=== PATIENT | female | born 1975 ===

== ENCOUNTER 2016-12-20 18:44 | Emergency (ER) | payer MEDICAID ==
[2016-12-20 19:10] VITALS: BP 116/76; PULSE 75; RESP 16; TEMP 98.2; O2SAT 100
--- NOTE | 2016-12-20 19:41 | ED PDOC ---
HPI: Abdomen Time Seen by Provider: 12/20/16 19:40 Chief Complaint (Nursing): Abdominal Pain Chief Complaint (Provider): abdominal pain History Per: Patient Additional Complaint(s): 41-year-old female with history of chronic back pain and chronic abdominal pain secondary to endometriosis presents to emergency department with worsening abdominal pain that started yesterday. Patient is currently getting her period and she states that whenever she is pre-menstrual her abdominal pain becomes worse. Patient is under the care of car painter for chronic back pain and takes oxycodone 30 mg tablets twice a day. She took her usual dose earlier but this did not help the abdominal pain. No other medications taken for pain relief. Patient denies any vaginal discharge or bleeding, denies dysuria or hematuria, no fever or chills. She rates current pain as a 9 out of 10. Past Medical History Reviewed: Historical Data, Nursing Documentation, Vital Signs Vital Signs: Last Vital Signs Temp 98.2 F 12/20/16 19:07 Pulse 75 12/20/16 19:07 Resp 16 12/20/16 19:07 BP 116/76 12/20/16 19:07 Pulse Ox 100 12/20/16 19:41 - Medical History PMH: Anxiety, Asthma, HTN, Hyperlipidemia - Surgical History Other surgeries: abdominoplasty, breast augmentation - Family History Family History: States: No Known Family Hx - Living Arrangements Living Arrangements: With Family - Social History Current smoker - smoking cessation education provided: No Alcohol: None Drugs: Denies - Home Medications Home Medications: Ambulatory Orders Medication Instructions Recorded Ibuprofen [Motrin Tab] 800 mg PO Q6H PRN #20 tab 10/08/16 - Allergies Allergies/Adverse Reactions: Allergies Allergy/AdvReac Type Severity Reaction Status Date / Time No Known Allergies Allergy Verified 12/20/16 19:07 Review of Systems ROS Statement: Except As Marked, All Systems Reviewed And Found Negative Constitutional: Negative for: Fever Cardiovascular: Negative for: Chest Pain Respiratory: Negative for: Cough Gastrointestinal: Positive for: Abdominal Pain. Negative for: Nausea, Vomiting , Diarrhea Genitourinary Female: Negative for: Dysuria, Vaginal Discharge, Vaginal Bleeding Physical Exam - Reviewed Nursing Documentation Reviewed: Yes Vital Signs Reviewed: Yes - Physical Exam Appears: Positive for: Well, Non-toxic, No Acute Distress Skin: Negative for: Rash Eye Exam: Positive for: Normal appearance, EOMI, PERRL Cardiovascular/Chest: Positive for: Regular Rate, Rhythm Respiratory: Positive for: Normal Breath Sounds Gastrointestinal/Abdominal: Positive for: Normal Exam, Soft. Negative for: Tenderness, Distended, Guarding, Rebound Back: Negative for: L CVA Tenderness, R CVA Tenderness Extremity: Positive for: Normal ROM Neurologic/Psych: Positive for: Alert, Oriented - ECG O2 Sat by Pulse Oximetry: 100 Pulse Ox Interpretation: Normal Medical Decision Making Medical Decision Making: Impression: chronic abdominal pain, endometriosis Plan: CBC CMP test UA IVF IV toradol Disposition - Clinical Impression Clinical Impression: Abdominal pain, Endometriosis - Patient ED Disposition Is Patient to be Admitted: Transfer of Care - Disposition Disposition: Transfer of Care Disposition Time: 20:00 Condition: STABLE Patient Signed Over To: Jessica Sharma Handoff Comments: Signed out pending diagnostic testing results and final disposition
[2016-12-20] MEDS ORDERED: Sodium Chloride 0.9% 1,000 ML IV STA (19:47)
[2016-12-20 20:29] LABS: BASO # 0.1 K/uL (0.0-0.2); BASO % 0.6 % (0.0-2.0); EOS # 0.2 K/uL (0.0-0.7); EOS % 1.9 % (0.0-4.0); HEMATOCRIT 39.4 % (34.0-47.0); LYMPH # 3.7 K/uL (1.0-4.3); LYMPH % 38.1 % (20.0-40.0); MEAN CELL VOLUME 88.1 fl (81.0-99.0); MEAN CORPUSCULAR HEMOGLOBIN 28.6 pg (27.0-31.0); MEAN CORPUSCULAR HGB CONC 32.5 g/dL (33.0-37.0); MEAN PLATELET VOLUME 11.2 fl (7.2-11.7); MONO # 0.7 K/uL (0.0-0.8); MONO % 7.8 % (0.0-10.0); NEUT # 4.9 K/uL (1.8-7.0); NEUT % 51.6 % (50.0-75.0); NRBC % 0.1 % (0.0-0.0); RED CELL DISTRIBUTION WIDTH 13.8 % (11.5-14.5); WHITE BLOOD COUNT 9.6 K/uL (4.8-10.8)
[2016-12-20 20:36] LABS: ALB/GLOB RATIO 1.5 (1.0-2.1); ALKALINE PHOSPHATASE 71 U/L (38-126); ALT/SGPT 30 U/L (9-52); AST/SGOT 22 U/L (14-36); BILIRUBIN,TOTAL 0.3 mg/dl (0.2-1.3); BLOOD UREA NITROGEN 14 mg/dl (7-17); CALCIUM 9.4 mg/dL (8.4-10.2); CARBON DIOXIDE 26 mmol/L (22-30); CHLORIDE 101 mmol/L (98-107); GFR AFRICAN-AMERICAN > 60; GLUCOSE,RANDOM 98 mg/dL (65-105); POTASSIUM 4.2 MMOL/L (3.6-5.0); RBC URINE 3 /hpf (0-3); SODIUM 138 mmol/l (132-148); TOTAL PROTEIN 7.2 G/DL (6.3-8.2); URINE BACTERIA FEW (<OCC); URINE BILIRUBIN NEGATIVE (NEGATIVE); URINE BLOOD NEGATIVE (NEGATIVE); URINE COLOR YELLOW (YELLOW); URINE GLUCOSE (UA) NEG (Normal); URINE KETONE NEGATIVE (NEGATIVE); URINE LEUKOCYTE ESTERASE SMALL Leu/uL (Negative); URINE PROTEIN NEGATIVE (NEGATIVE); URINE UROBILINOGEN 0.2-1.0 mg/dL (0.2-1.0); WBC URINE 6 /hpf (0-5)
--- NOTE | 2016-12-20 21:09 | ED PDOC ---
- Laboratory Results Result Diagrams: 12/20/16 20:02 12/20/16 20:02 - ECG O2 Sat by Pulse Oximetry: 100 Medical Decision Making Medical Decision Making: Labs and urine reviewed. Disposition - Clinical Impression Clinical Impression: Abdominal pain, Endometriosis - POA Present On Arrival: None - Disposition [facility]errals: [facility]Outside] [facility] [Outside[facility] Disposition: Routine/Home Disposition Time: 21:07 Condition: GOOD Prescriptions: Naproxen 500 mg PO Q12H #20 tab Instructions: Endometritis (ED)
== END 2016-12-20 21:18 | disposition home or self-care (01) ==
LOC: H.ER 18:44
DX: N80.9 Endometriosis, unspecified (principal); G89.29 Other chronic pain; E78.5 Hyperlipidemia, unspecified; F41.9 Anxiety disorder, unspecified; I10 Essential (primary) hypertension; J45.909 Unspecified asthma, uncomplicated

== ENCOUNTER 2017-02-14 19:16 | Emergency (ER) | payer MEDICAID ==
[2017-02-14 19:51] VITALS: BP 136/94; PULSE 77; RESP 16; TEMP 98.2; O2SAT 95
--- NOTE | 2017-02-14 20:34 | ED PDOC ---
HPI: Abdomen Time Seen by Provider: 02/14/17 19:35 Chief Complaint (Nursing): Abdominal Pain Chief Complaint (Provider): Abdominal pain History Per: Patient History/Exam Limitations: no limitations Onset/Duration Of Symptoms: Persistent Outside of [place] travel?: No Current Symptoms Are (Timing): Still Present Location Of Pain/Discomfort: Diffuse Associated Symptoms: Back Pain Additional Complaint(s): The patient is a 41yo female, PMhx of endometriosis, chronic back pain, presents to ED for evaluation of persistent abdominal pain present for the past month. Pt reports her pain is similar to the pain caused by endometriosis but she denies onset of her menstrual period. Pt reports associated abdominal distention. She denies any nausea, vomiting. Reports taking Percocet 1 tab PO prior to arrival with no relief. Pt offers no additional medical complaints. Abnormal Vaginal Bleeding: No Past Medical History Reviewed: Historical Data, Nursing Documentation, Vital Signs Vital Signs: Last Vital Signs Temp 98.2 F 02/14/17 19:49 Pulse 77 02/14/17 19:49 Resp 16 02/14/17 19:49 BP 136/94 H 02/14/17 19:49 Pulse Ox 95 02/14/17 22:06 - Medical History PMH: Anxiety, Asthma, HTN, Hyperlipidemia - Family History Family History: States: Unknown Family Hx - Social History Current smoker - smoking cessation education provided: No Alcohol: None Drugs: Denies - Home Medications Home Medications: Ambulatory Orders Medication Instructions Recorded Ibuprofen [Motrin Tab] 800 mg PO Q6H PRN #20 tab 10/08/16 Naproxen 500 mg PO Q12H #20 tab 12/20/16 - Allergies Allergies/Adverse Reactions: Allergies Allergy/AdvReac Type Severity Reaction Status Date / Time No Known Allergies Allergy Verified 02/14/17 19:48 Review of Systems ROS Statement: Except As Marked, All Systems Reviewed And Found Negative Gastrointestinal: Positive for: Abdominal Pain. Negative for: Nausea, Vomiting Musculoskeletal: Positive for: Back Pain (chronic) Physical Exam - Reviewed Nursing Documentation Reviewed: Yes Vital Signs Reviewed: Yes - Physical Exam Appears: Positive for: Well, Non-toxic, No Acute Distress Head Exam: Positive for: ATRAUMATIC, NORMAL INSPECTION, NORMOCEPHALIC Skin: Positive for: Normal Color, Warm, DRY Eye Exam: Positive for: Normal appearance Neck: Positive for: Normal, Supple Cardiovascular/Chest: Positive for: Regular Rate, Rhythm Respiratory: Positive for: Normal Breath Sounds. Negative for: Respiratory Distress Gastrointestinal/Abdominal: Positive for: Tenderness (diffuse) Extremity: Positive for: Normal ROM Neurologic/Psych: Positive for: Alert, Oriented - Laboratory Results Result Diagrams: 02/14/17 20:39 02/14/17 20:39 - ECG O2 Sat by Pulse Oximetry: 95 Medical Decision Making Medical Decision Making: Time: 2014 Impression: Chronic pain due to Hx of endometriosis Plan: -- Basic bloodwork -- Toradol 30 mg IM Reassess Time: 0 Pt reports feeling much better. Will follow up with OBGYN. Stable for d/c home. Scribe Attestation: Documented by Marjorie Gomez acting as a scribe for Marisela Alvarez MD. Provider Attestation: All medical record entries made by the Scribe were at my direction and personally dictated by me. I have reviewed the chart and agree that the record accurately reflects my personal performance of the history, physical exam, medical decision making, and the department course for this patient. I have also personally directed, reviewed, and agree with the discharge instructions and disposition. Disposition - Clinical Impression Clinical Impression: Endometriosis - Patient ED Disposition Is Patient to be Admitted: No Counseled Patient/Family Regarding: Studies Performed, Diagnosis, Need For Followup - Disposition Disposition: Routine/Home Disposition Time: 21:00 Condition: IMPROVED Additional Instructions: follow up with your primary wire basket maker return to the ED with any worsening or concerning symptoms. Instructions: Endometriosis (ED)
[2017-02-14 20:57] LABS: BASO # 0.1 K/uL (0.0-0.2); BASO % 0.7 % (0.0-2.0); EOS # 0.2 K/uL (0.0-0.7); EOS % 2.4 % (0.0-4.0); HEMOGLOBIN 13.7 g/dL (12.0-16.0); LYMPH # 3.2 K/uL (1.0-4.3); LYMPH % 34.9 % (20.0-40.0); MEAN CELL VOLUME 86.7 fl (81.0-99.0); MEAN CORPUSCULAR HEMOGLOBIN 28.5 pg (27.0-31.0); MEAN CORPUSCULAR HGB CONC 32.9 g/dL (33.0-37.0); MEAN PLATELET VOLUME 11.3 fl (7.2-11.7); MONO # 0.5 K/uL (0.0-0.8); MONO % 5.9 % (0.0-10.0); NEUT # 5.2 K/uL (1.8-7.0); NEUT % 56.1 % (50.0-75.0); NRBC % 0.1 % (0.0-0.0); RBC 4.81 Mil/uL (3.80-5.20); WHITE BLOOD COUNT 9.3 K/uL (4.8-10.8)
[2017-02-14 21:05] LABS: ALB/GLOB RATIO 1.3 (1.0-2.1); ALBUMIN 4.4 g/dL (3.5-5.0); ALT/SGPT 35 U/L (9-52); AST/SGOT 26 U/L (14-36); BLOOD UREA NITROGEN 20 mg/dl (7-17); CALCIUM 9.4 mg/dL (8.4-10.2); GFR AFRICAN-AMERICAN > 60; GFR NON-AFRICAN AMERICAN > 60
== END 2017-02-14 22:10 | disposition home or self-care (01) ==
LOC: H.ER 19:16
DX: N80.9 Endometriosis, unspecified (principal)

== ENCOUNTER 2017-07-26 14:20 | Emergency (ER) | payer MEDICAID ==
[2017-07-26 14:34] VITALS: TEMP 98.5
--- NOTE | 2017-07-26 15:07 | ED PDOC ---
HPI: Abdomen Time Seen by Provider: 07/26/17 14:40 Chief Complaint (Nursing): Abdominal Pain Chief Complaint (Provider): Abdominal Pain History Per: Patient History/Exam Limitations: no limitations Onset/Duration Of Symptoms: Days Current Symptoms Are (Timing): Still Present Additional Complaint(s): 41 y/o female with a past medical history of diabetes and endometriosis who presents to the emergency department with a complaint of an intermittent lower abdominal pain that worsened over the past 2 days. Reports pain radiates to the back. States pain is similar to previous times when she was diagnosed with endometriosis. Denies burning sensation while urinating, nausea, or vomiting. PMD: Dr. Shaik Ritu DANIEL Past Medical History Reviewed: Historical Data, Nursing Documentation, Vital Signs Vital Signs: Last Vital Signs Temp 98.5 F 07/26/17 14:31 Pulse 75 07/26/17 14:31 Resp 16 07/26/17 14:31 BP 131/71 07/26/17 14:34 Pulse Ox 98 07/26/17 16:36 - Medical History PMH: Anxiety, Asthma, Diabetes, HTN, Hyperlipidemia Other PMH: Endometriosis - Family History Family History: States: Unknown Family Hx - Home Medications Home Medications: Ambulatory Orders Medication Instructions Recorded Ibuprofen [Motrin Tab] 800 mg PO Q6H PRN #20 tab 10/08/16 Naproxen 500 mg PO Q12H #20 tab 12/20/16 Naproxen [Naprosyn] 500 mg PO Q12H #20 tab 07/26/17 - Allergies Allergies/Adverse Reactions: Allergies Allergy/AdvReac Type Severity Reaction Status Date / Time No Known Allergies Allergy Verified 02/14/17 19:48 Review of Systems ROS Statement: Except As Marked, All Systems Reviewed And Found Negative Gastrointestinal: Positive for: Abdominal Pain (Lower region). Negative for: Nausea, Vomiting Genitourinary Female: Negative for: Dysuria Musculoskeletal: Positive for: Back Pain Physical Exam - Reviewed Nursing Documentation Reviewed: Yes Vital Signs Reviewed: Yes - Physical Exam Appears: Positive for: Non-toxic, No Acute Distress Head Exam: Positive for: ATRAUMATIC, NORMAL INSPECTION, NORMOCEPHALIC Skin: Positive for: Normal Color, Warm, Dry Gastrointestinal/Abdominal: Positive for: Normal Exam, Soft. Negative for: Tenderness, Mass Back: Positive for: Normal Inspection. Negative for: L CVA Tenderness, R CVA Tenderness Neurologic/Psych: Positive for: Alert, Oriented (x3) - ECG O2 Sat by Pulse Oximetry: 98 (RA) Pulse Ox Interpretation: Normal Medical Decision Making Medical Decision Making: Time: 4 Initial Impression: Abdominal pain Initial Plan: --Urine DIP & Preg --Toradol 30 mg IM --Transvaginal US --Reevaluation Time: 1633 --Transvaginal US FINDINGS: UTERUS: Measures cm. Normal in size and appearance. No fibroid or other mass lesion seen. ENDOMETRIUM: Measures 10.6 mm in diameter. No ultrasound findings to suggest gestational sac , fluid, debris, mass or polyp or other pathologic process within the endometrium. CERVIX: No cervical abnormality identified.Incidental finding: Nabothian cysts are present, the largest 2 cm. Similar findings identified on the prior study. RIGHT OVARY: Measures 1.7 x 2.6 x 2.6 cm. No solid mass. Normal flow. LEFT OVARY: Measures 1.1 x 1.8 x 2 cm. No solid mass. Normal flow. FREE FLUID: No significant free fluid noted. OTHER FINDINGS: None. IMPRESSION: Unremarkable pelvic ultrasound. Scribe Attestation: Documented by Shayy Carvajal, acting as a scribe for Cristian Banerjee MD. Provider Scribe Attestation: All medical record entries made by the Scribe were at my direction and personally dictated by me. I have reviewed the chart and agree that the record accurately reflects my personal performance of the history, physical exam, medical decision making, and the department course for this patient. I have also personally directed, reviewed, and agree with the discharge instructions and disposition. Disposition - Clinical Impression Clinical Impression: Endometriosis - Patient ED Disposition Is Patient to be Admitted: No Counseled Patient/Family Regarding: Studies Performed, Diagnosis, Need For Followup, Rx Given - Disposition [facility] Disposition: Routine/Home Disposition Time: 16:46 Condition: FAIR Prescriptions: Naproxen [Naprosyn] 500 mg PO Q12H #20 tab Instructions: Endometriosis (ED) Forms: [employer] (T[place]ik)
--- NOTE | 2017-07-26 16:35 | US ---
HISTORY: Pelvic pain. Duration of symptoms: Unknown Menstrual status: LMP 07/04/2017. Cycles are regular COMPARISON: 04/01/2016. TECHNIQUE: FINDINGS: UTERUS: Measures cm. Normal in size and appearance. No fibroid or other mass lesion seen. ENDOMETRIUM: Measures 10.6 mm in diameter. No ultrasound findings to suggest gestational sac, fluid, debris, mass or polyp or other pathologic process within the endometrium. CERVIX: No cervical abnormality identified.Incidental finding: Nabothian cysts are present, the largest 2 cm. Similar findings identified on the prior study. RIGHT OVARY: Measures 1.7 x 2.6 x 2.6 cm. No solid mass. Normal flow. LEFT OVARY: Measures 1.1 x 1.8 x 2 cm. No solid mass. Normal flow. FREE FLUID: No significant free fluid noted. OTHER FINDINGS: None. IMPRESSION: Unremarkable pelvic ultrasound.
[2017-07-26 17:03] VITALS: BP 131/75; PULSE 72; RESP 18; O2SAT 99
== END 2017-07-26 17:02 | disposition home or self-care (01) ==
LOC: H.ER 14:20
DX: N80.9 Endometriosis, unspecified (principal); E11.9 Type 2 diabetes mellitus without complications; E78.5 Hyperlipidemia, unspecified; F41.9 Anxiety disorder, unspecified; I10 Essential (primary) hypertension; J45.909 Unspecified asthma, uncomplicated
CPT/HCPCS: 76830; 81025; 96372; 99283; J1885

== ENCOUNTER 2018-01-29 13:19 | Emergency (ER) | payer MEDICAID ==
[2018-01-29 13:34] VITALS: PULSE 79; O2SAT 97
--- NOTE | 2018-01-29 15:00 | ED PDOC ---
HPI: Abdomen Time Seen by Provider: 01/29/18 14:13 Chief Complaint (Nursing): Abdominal Pain Chief Complaint (Provider): abdominal pain History Per: Patient History/Exam Limitations: no limitations Onset/Duration Of Symptoms: Days (x2 weeks) Current Symptoms Are (Timing): Still Present Location Of Pain/Discomfort: Suprapubic Associated Symptoms: denies: Fever, Chills, Nausea, Vomiting, Diarrhea, Chest Pain, Urinary Symptoms, Other (SOB, hematuria) Additional Complaint(s): Cindy Ordonez is a 42 year old female, with a past medical history of asthma, hypertension, hyperlipidemia, diabetes and endometriosis, who presents to the emergency department complaining of lower abdominal pain that radiates to the back for the past 2 weeks. Patient states she has a history of similar symptoms due to endometriosis. Patient reports when medications at home don't work, she comes to the ED for further relief. She took x1 tablet of Oxycodone prior to arrival. Patient states she has an upcoming biopsy scheduled for her endometriosis. She denies any fever, chills, nausea, vomit, diarrhea, urinary symptoms, hematuria, vaginal bleeding, vaginal discharge, chest pain or shortness of breath. No further medical complaints. LMP January 06. PMD: Shaik Chaney Abnormal Vaginal Bleeding: No Last Menstral Period: January 06 Past Medical History Reviewed: Historical Data, Nursing Documentation, Vital Signs Vital Signs: Last Vital Signs Temp 98.0 F 01/29/18 16:03 Pulse 79 01/29/18 16:03 Resp 15 01/29/18 16:03 BP 131/77 01/29/18 16:03 Pulse Ox 97 01/29/18 16:03 - Medical History PMH: Anxiety, Asthma, Diabetes, HTN, Hyperlipidemia Other PMH: endometriosis - Surgical History Surgical History: Other surgeries: gastric sleeve, abdominoplasty, breast augmentation - Family History Family History: States: Unknown Family Hx - Social History Current smoker - smoking cessation education provided: No Alcohol: None Drugs: Denies - Home Medications Home Medications: Ambulatory Orders Medication Instructions Recorded Ibuprofen [Motrin Tab] 800 mg PO Q6H PRN #20 tab 10/08/16 Naproxen 500 mg PO Q12H #20 tab 12/20/16 Naproxen [Naprosyn] 500 mg PO Q12H #20 tab 07/26/17 Naproxen 500 mg PO BID #20 tab 01/29/18 - Allergies Allergies/Adverse Reactions: Allergies Allergy/AdvReac Type Severity Reaction Status Date / Time No Known Allergies Allergy Verified 01/29/18 13:31 Review of Systems ROS Statement: Except As Marked, All Systems Reviewed And Found Negative Constitutional: Negative for: Fever, Chills Cardiovascular: Negative for: Chest Pain Respiratory: Negative for: Shortness of Breath Gastrointestinal: Positive for: Abdominal Pain (lower). Negative for: Nausea, Vomiting, Diarrhea Genitourinary Female: Negative for: Dysuria, Frequency, Hematuria, Vaginal Discharge, Vaginal Bleeding Musculoskeletal: Positive for: Back Pain Physical Exam - Reviewed Nursing Documentation Reviewed: Yes Vital Signs Reviewed: Yes - Physical Exam Comments: GENERAL APPEARANCE: Patient is awake, alert, oriented x 3, in mild painful distress. SKIN: Warm, dry; (-) cyanosis. EYES: (-) conjunctival pallor, (-) scleral icterus. ENMT: Mucous membranes moist. NECK: Supple, FROM (-) tenderness, (-) stiffness, (-) lymphadenopathy. CHEST AND RESPIRATORY: (-) rales, (-) rhonchi, (-) wheezes; breath sounds equal bilaterally. Respirations even and nonlabored, speaking in full sentences. HEART AND CARDIOVASCULAR: (-) irregularity; (-) murmur, (-) gallop. ABDOMEN AND GI: (-) distention. Bowel sounds active x4; (+) mild suprapubic tenderness. (-) guarding, (-) rebound, (-) palpable masses, (-) CVA tenderness. BACK: (+) b/l paralumbar tenderness, (-) spasm, (-) direct bony tenderness, (- ) deformity. Straight leg raise (-) bilaterally. EXTREMITIES: (-) deformity, (-) edema, (+) distal pulses. NEURO AND PSYCH: Mental status as above; (-) focal findings. Gait steady, speech clear. (-) facial asymmetry (-) aphasia. - Laboratory Results Result Diagrams: 01/29/18 15:00 01/29/18 15:00 Urine POC: Negative Urine dip results: Negative for: Leukocyte Esterase, Blood, Nitrate, Ketones, Glucose, Bilirubin, Protein - ECG O2 Sat by Pulse Oximetry: 97 (RA) Pulse Ox Interpretation: Normal Medical Decision Making Medical Decision Making: Time: 14:13 Initial Impression: Acute on chronic pain, Endometriosis Initial Plan: --BMP --Urine dipstick --Urine --CBC w/ differential --Toradol 30 mg IVP --Ultram 50 mg PO (Not driving home) --Reevaluation 15:00 -Urine dip and were negative. 1540 Labs reviewed and grossly unremarkable. 1600 On re-evaluation, patient reports improvement of symptoms. On exam, patient remains AAOx3, in no acute distress. Neck is supple, lungs CTA, cardiac RRR, abdomen is soft and non-tender, neuro exam shows no focal findings. Ambulatory in ED without difficulty. VSS, stable for discharge. Diagnostic results d/w the patient in great detail. Dx of endometriosis, acute on chronic pain d/w the patient. Based on history, exam and diagnostic results plan will be for discharge and outpatient LIFE SKILLS EDUCATOR follow up. Advised to follow up with primary care physician/LIFE SKILLS EDUCATOR in 1-2 days without fail. Advised to take medication as prescribed. Return to the emergency room at any time for any new or worsening symptoms. Patient states she fully agrees with and understands discharge instructions. States that she agrees with the plan and disposition. Verbalized and repeated discharge instructions and plan. I have given the patient opportunity to ask any additional questions. Scribe Attestation: Documented by Jackson Talbert, acting as a scribe for Devi Hodges PA-C Provider Scribe Attestation: All medical record entries made by the Scribe were at my direction and personally dictated by me. I have reviewed the chart and agree that the record accurately reflects my personal performance of the history, physical exam, medical decision making, and the department course for this patient. I have also personally directed, reviewed, and agree with the discharge instructions and disposition. Disposition - Clinical Impression Clinical Impression: Abdominal discomfort, Endometriosis, Chronic back pain - Patient ED Disposition Is Patient to be Admitted: No Counseled Patient/Family Regarding: Studies Performed, Diagnosis, Need For Followup, Rx Given - Disposition Referrals: Shaik Chaney MD [Family Provider] - Disposition: Routine/Home Disposition Time: 16:00 Condition: STABLE Additional Instructions: FOLLOW UP WITH PMD/LIFE SKILLS EDUCATOR PLANNED. RETURN TO ED WITH ANY NEW OR WORSENING SYMPTOMS. Prescriptions: Naproxen 500 mg PO BID #20 tab Instructions: Low Back Pain in Adults, Endometriosis, Acute Abdomen (Belly Pain ), Chronic Pain Forms: [employer] (Bermudian) Print Language: CHINESE - POA Present On Arrival: None Results - Lab Results Lab Results: 01/29/18 01/29/18 15:00 15:00 WBC 6.9 RBC 4.63 Hgb 13.6 Hct 41.8 MCV 90.3 D MCH 29.4 MCHC 32.6 L RDW 13.4 Plt Count 139 MPV 11.8 H Neut % (Auto) 54.0 Lymph % (Auto) 34.6 [place] % (Auto) 8.8 Eos % (Auto) 1.9 Baso % (Auto) 0.7 Neut # (Auto) 3.7 Lymph # (Auto) 2.4 [place] # (Auto) 0.6 Eos # (Auto) 0.1 Baso # (Auto) 0.1 Sodium 139 Potassium 4.2 Chloride 104 Carbon Dioxide 27 Anion Gap 12 BUN 12 Creatinine 0.8 Est GFR ( Amer) > 60 Est GFR (Non-Af Amer) > 60 Random Glucose 89 Calcium 9.1
[2018-01-29 15:29] LABS: BASO # 0.1 K/uL (0.0-0.2); BASO % 0.7 % (0.0-2.0); EOS # 0.1 K/uL (0.0-0.7); EOS % 1.9 % (0.0-4.0); HEMOGLOBIN 13.6 g/dL (12.0-16.0); LYMPH # 2.4 K/uL (1.0-4.3); LYMPH % 34.6 % (20.0-40.0); MEAN CELL VOLUME 90.3 fl (81.0-99.0); MEAN CORPUSCULAR HEMOGLOBIN 29.4 pg (27.0-31.0); MEAN CORPUSCULAR HGB CONC 32.6 g/dL (33.0-37.0); MEAN PLATELET VOLUME 11.8 fl (7.2-11.7); MONO # 0.6 K/uL (0.0-0.8); MONO % 8.8 % (0.0-10.0); NEUT # 3.7 K/uL (1.8-7.0); NRBC % 0.1 % (0.0-0.0); RBC 4.63 Mil/uL (3.80-5.20); RED CELL DISTRIBUTION WIDTH 13.4 % (11.5-14.5); WHITE BLOOD COUNT 6.9 K/uL (4.8-10.8)
[2018-01-29 15:37] LABS: BLOOD UREA NITROGEN 12 mg/dl (7-17); CALCIUM 9.1 mg/dL (8.4-10.2); GFR AFRICAN-AMERICAN > 60; GFR NON-AFRICAN AMERICAN > 60
[2018-01-29 16:03] VITALS: BP 131/77; RESP 15; TEMP 98
== END 2018-01-29 16:03 | disposition home or self-care (01) ==
LOC: H.ER 13:19
DX: R10.9 Unspecified abdominal pain (principal); N80.9 Endometriosis, unspecified; G89.29 Other chronic pain; E11.9 Type 2 diabetes mellitus without complications; E78.5 Hyperlipidemia, unspecified; F41.9 Anxiety disorder, unspecified; I10 Essential (primary) hypertension; J45.909 Unspecified asthma, uncomplicated
CPT/HCPCS: 80048; 81025; 85025; 96374; 99284; J1885

== ENCOUNTER 2019-01-08 17:47 | Emergency (ER) | payer MEDICAID ==
[2019-01-08] MEDS ORDERED: Sodium Chloride 0.9% 1,000 ML IV STA (18:52)
--- NOTE | 2019-01-08 19:06 | ED PDOC ---
HPI: Abdomen Time Seen by Provider: 01/08/19 18:43 Chief Complaint (Nursing): Abdominal Pain Chief Complaint (Provider): Pelvic Pain History Per: Patient History/Exam Limitations: no limitations Onset/Duration Of Symptoms: Days Additional Complaint(s): 43 year old female presents to ED with pelvic pain x4 days. Patient reports feeling bloated and cramping radiates from pelvis to back which waxes and wanes but is constant. She reports pain is similar to when endometriosis pain gets severe. Patient has been to this ER several times for same complaint. 4 weeks ago patient started Orilissa prescribed by cart driver to treat endometriosis. She also reports period is now late by 1 week. Often pain resolves when she gets her period. Patient denies any vaginal discharge, urinary symptoms, vomiting or diarrhea. She states she also has been taking Percocet for chronic back pain. PMD: Shaik Ritu ASSISTANT PROFESSOR OF DRAMA: Marcello Gregorio Past Medical History Reviewed: Historical Data, Nursing Documentation, Vital Signs Vital Signs: Last Vital Signs Temp 98.5 F 01/08/19 18:21 Pulse 73 01/08/19 18:21 Resp 16 01/08/19 18:21 BP 153/104 H 01/08/19 18:21 Pulse Ox 98 01/08/19 18:21 Primary Care Provider: Shaik Chaney - Medical History PMH: Anxiety, Asthma, Diabetes, HTN, Hyperlipidemia Other PMH: endometriosis - Surgical History Surgical History: Other surgeries: gastric sleeve - Family History Family History: States: Diabetes, Hypertension - Social History Current smoker - smoking cessation education provided: No Alcohol: None Drugs: Denies - Home Medications Home Medications: Ambulatory Orders Medication Instructions Recorded Ibuprofen [Motrin Tab] 800 mg PO Q6H PRN #20 tab 10/08/16 Naproxen 500 mg PO Q12H #20 tab 12/20/16 Naproxen [Naprosyn] 500 mg PO Q12H #20 tab 07/26/17 Naproxen 500 mg PO BID #20 tab 01/29/18 Naproxen [Naprosyn] 1 tab PO BID PRN #60 tab 01/08/19 - Allergies Allergies/Adverse Reactions: Allergies Allergy/AdvReac Type Severity Reaction Status Date / Time No Known Allergies Allergy Verified 01/08/19 18:21 Review of Systems ROS Statement: Except As Marked, All Systems Reviewed And Found Negative Gastrointestinal: Negative for: Vomiting, Diarrhea Genitourinary Female: Positive for: Pelvic Pain (constant, waxes and wanes), Other (cramping radiating from pelvis to back). Negative for: Dysuria, Frequency, Vaginal Discharge Physical Exam - Reviewed Nursing Documentation Reviewed: Yes Vital Signs Reviewed: Yes - Physical Exam Appears: Positive for: No Acute Distress Head Exam: Positive for: ATRAUMATIC, NORMOCEPHALIC Skin: Positive for: Warm, Dry Eye Exam: Positive for: EOMI, PERRL Cardiovascular/Chest: Positive for: Regular Rate, Rhythm. Negative for: Murmur Respiratory: Positive for: Normal Breath Sounds. Negative for: Respiratory Distress Gastrointestinal/Abdominal: Positive for: Soft, Tenderness (mild on palpation of suprapubic area). Negative for: Mass, Distended, Guarding, Rebound Back: Positive for: Normal Inspection. Negative for: Decreased ROM Extremity: Positive for: Normal ROM. Negative for: Swelling Lymphatic: Negative for: Adenopathy Neurological/Psych: Positive for: Awake, Alert. Negative for: Motor/Sensory Deficits - Laboratory Results Result Diagrams: 01/08/19 19:00 01/08/19 19:00 - ECG O2 Sat by Pulse Oximetry: 98 (RA) Pulse Ox Interpretation: Normal Medical Decision Making Medical Decision Making: Time: 1852 Initial Impression: Ddx: Initial Plan: --Labs (CMP, CBC) --U-preg, U-dip --Tylenol --Toradol --IV Fluids --US Transvaginal 2133 US Findings Uterus Measures 9.1 x 4.5 x 6.1 cm. Inhomogeneous fundus. No fibroid or other mass lesion seen. Endometrium Measures 8 mm in diameter. Unremarkable. Cervix Multiple nabothian cysts the largest measure 1.4 x 1.5 x 1.3 cm and 1.4 x 1.6 x 1.6 cm. Right ovary Measures 3.1 x 1.8 x 1.9 cm. No solid mass. Normal flow. Follicles. Left ovary Measures 1.2 x 1.4 x 1.3 cm cm. No solid mass. Normal flow. Follicles. Free fluid No significant free fluid noted. Other Findings None. Impression 1. Inhomogeneous fundus which may be due to diffuse myomatosis versus adenomyosis. 2. Multiple cervical nabothian cysts. 3. Bilateral ovarian follicles. Labs unremarkable. DW pt findings. Pt will followup with senior project coordinator. Also given contact information for Dr Dukes for pelvic pain specialization. Stable for discharge. Scribe Attestation: Documented by Puneet Rodríguez acting as a scribe for Katya Loredo MD. Provider Scribe Attestation: All medical record entries made by the Scribe were at my direction and personally dictated by me. I have reviewed the chart and agree that the record accurately reflects my personal performance of the history, physical exam, medical decision making, and the department course for this patient. I have also personally directed, reviewed, and agree with the discharge instructions and disposition. Disposition - Clinical Impression Clinical Impression: Endometriosis, Abdominal pain - Disposition Referrals: Juan David Gambino [Medical Doctor] - (FOR POSSIBLE SECOND OPINION) Marcello Gregorio MD [Medical Doctor] - Disposition: Routine/Home Disposition Time: 21:45 Condition: STABLE Additional Instructions: CALL YOUR DOCTOR TOMORROW TO SETUP FOLLOWUP APPOINTMENT NEXT WEEK. Prescriptions: Naproxen [Naprosyn] 1 tab PO BID PRN #60 tab PRN Reason: Pain Instructions: Endometriosis (DC) Forms: [facility] ED School/Work Excuse
[2019-01-08 19:15] LABS: BASO % 0.6 % (0.0-2.0); EOS # 0.2 K/uL (0.0-0.7); HEMOGLOBIN 12.6 g/dL (12.0-16.0); LYMPH # 3.2 K/uL (1.0-4.3); LYMPH % 36.4 % (20.0-40.0); MEAN CELL VOLUME 86.8 fl (81.0-99.0); MEAN CORPUSCULAR HEMOGLOBIN 28.5 pg (27.0-31.0); MEAN CORPUSCULAR HGB CONC 32.9 g/dL (33.0-37.0); MONO # 0.7 K/uL (0.0-0.8); MONO % 7.7 % (0.0-10.0); NEUT # 4.7 K/uL (1.8-7.0); NEUT % 53.3 % (50.0-75.0); NRBC % 0.1 % (0.0-0.0); RBC 4.43 Mil/uL (3.80-5.20); RED CELL DISTRIBUTION WIDTH 13.8 % (11.5-14.5); WHITE BLOOD COUNT 8.8 K/uL (4.8-10.8)
[2019-01-08 19:26] LABS: ALB/GLOB RATIO 1.3 (1.0-2.1); ALBUMIN 4.2 g/dL (3.5-5.0); ALT/SGPT 27 U/L (9-52); AST/SGOT 30 U/L (14-36); BLOOD UREA NITROGEN 16 mg/dl (7-17); CALCIUM 9.1 mg/dL (8.4-10.2); GFR NON-AFRICAN AMERICAN > 60
[2019-01-08 19:31] LABS: BARBITURATES, UR NEGATIVE (NEGATIVE); BENZODIAZEPINES, UR NEGATIVE (NEGATIVE); OPIATES, UR POSITIVE (NEGATIVE); PHENCYCLIDINE, UR NEGATIVE (NEGATIVE)
[2019-01-08 21:33] VITALS: RESP 18
[2019-01-08 23:02] VITALS: BP 140/98; PULSE 71; TEMP 98
--- NOTE | 2019-01-09 12:09 | US ---
Date of service: 01/08/2019 HISTORY: Pelvic pain. LMP 12/10/2018. Irregular cycles. COMPARISON: None available. TECHNIQUE: Transvaginal only. Real -time technique with 2D, duplex and color Doppler FINDINGS: UTERUS: Measures 4.5 x 6.1 x 9.1 cm. Normal in size and appearance. No fibroid or other mass lesion seen. ENDOMETRIUM: Measures 7.9 mm in diameter. No ultrasound findings to suggest gestational sac, fluid, debris, mass or polyp or other pathologic process within the endometrium. CERVIX: No cervical abnormality identified.Incidental finding: Nabothian cysts the largest measures 1.4 x 1.6 cm RIGHT OVARY: Measures 1.8 x 1.9 x 3.1 cm. No solid mass. Normal flow. Multiple subcentimeter follicles. LEFT OVARY: Measures 1.4 x 1.3 x 1.2 cm. No solid mass. Normal flow. Multiple subcentimeter follicles. FREE FLUID: No significant free fluid noted. OTHER FINDINGS: None. IMPRESSION: No significant or acute findings to account for/ related to the clinical presentation. Additional benign and/or incidental findings described above. Concordant findings (preliminary report) provided by [facility].
[2019-01-11 13:00] VITALS: O2SAT 98
== END 2019-01-08 22:30 | disposition home or self-care (01) ==
LOC: H.ER 17:47
DX: N80.9 Endometriosis, unspecified (principal); R10.2 Pelvic and perineal pain; E11.9 Type 2 diabetes mellitus without complications; E78.5 Hyperlipidemia, unspecified; I10 Essential (primary) hypertension; J45.909 Unspecified asthma, uncomplicated; N88.8 Other specified noninflammatory disorders of cervix uteri
CPT/HCPCS: 76830; 80053; 80324; 80345; 80346; 80349; 80353; 80358; 80361; 81025; 83992; 85025; 96374; 99285; J1885; J7030